=== PATIENT | male | born 1985 | race Two or more races ===

== ENCOUNTER 2017-10-31 16:27 | Emergency (ER) | payer MEDICAID, MEDICARE ==
[2017-10-31 16:46] VITALS: BP 184/117
[2017-10-31] MEDS ORDERED: Acetaminophen/oxyCODONE 325-5 MG Tab PO ONE (17:25)
--- NOTE | 2017-10-31 17:38 | EDM.PDOC ---
ED HPI GENERAL MEDICAL PROBLEM - General Chief Complaint: Lower Extremity Injury/Pain Stated Complaint: poss knee injury Time Seen by Provider: 10/31/17 16:46 Source of Information: Reports: Patient History Limitations: Reports: No Limitations - History of Present Illness INITIAL COMMENTS - FREE TEXT/NARRATIVE: 32-year-old male presents for evaluation and treatment of left knee pain and swelling. Patient states that on Sunday he attempted to move a 24 pack of soda with his foot. It sounds as if he had his knee contorted in an odd position when he was pushing the soda. He states he felt 2 pops in his knee. Presented to the [facility] Sunday where they did x-rays but no abnormalities were found. Since Sunday he has noticed increased swelling and pain. He normally is confined to a wheelchair but will transfer on his own. He is having difficulty with transfers due to the knee pain. No numbness or tingling in the leg. On arrival to the ER the patient's oxygen sats are from the ED percent. He states that he is norm low. He has severe kyphosis and is a dialysis patient. He had his complete run of dialysis today. He states that he has "soft bones". PCP is Dr. Mcdonnell. Location: Reports: Lower Extremity, Left Left Knee Pain Score (Numeric/FACES): 8 - Related Data Allergies Allergy/AdvReac Type Severity Reaction Status Date / Time No Known Allergies Allergy Verified 10/31/17 16:39 Home Meds: Home Meds Albuterol Sulfate [Proair Respiclick] 1 puff INH Q6H PRN 12/31/15 [History] Aspirin 325 mg PO DAILY 12/31/15 [History] B Complex & C No.20/Folic Acid [Nephrocaps Softgel] 1 mg PO DAILY 12/31/15 [ History] Lisinopril 40 mg PO DAILY 12/31/15 [History] Metoprolol Tartrate 100 mg PO TID 12/31/15 [History] Ranitidine [Zantac] 150 mg PO DAILY 12/31/15 [History] Sevelamer Carbonate [Renvela] 800 mg PO TIDMEALS 12/31/15 [History] amLODIPine [Norvasc] 10 mg PO BEDTIME 12/31/15 [History] cloNIDine [Catapres] 0.2 mg PO TID 12/31/15 [History] hydrALAZINE [Apresoline] 100 mg PO TID 12/31/15 [History] Acetaminophen/oxyCODONE [Percocet 325-5 MG] 1 each PO Q4HR PRN #15 tab 10/31/17 [Rx] Diclofenac Sodium [Voltaren] 50 mg PO TID #24 tab.ec 10/31/17 [Rx] Prednisone [IJD: predniSONE] 20 mg PO BID #10 tab 10/31/17 [Rx] Past Medical History Cardiovascular History: Reports: Bacterial Endocarditis, Cardiomyopathy, Heart Failure, Hypertension Respiratory History: Reports: Other (See Below) Other Respiratory History: History of SIRS, pneumonia, pulmonary edema Genitourinary History: Reports: Dialysis, Renal Disease Other Genitourinary History: membranoproliferative glomerulonephritis, C3 glomerulopathy Musculoskeletal History: Reports: Fracture, Gout Neurological History: Reports: Headaches, Chronic Psychiatric History: Reports: Anxiety Endocrine/Metabolic History: Reports: Hyperparathyroidism, Other (See Below) Other Endocrine/Metabolic History: secondary hyperphosphatemia, 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 Hematologic History: Reports: Anemia, Blood Transfusion(s), Other (See Below) Other Hematologic History: RBC known antibodies - Infectious Disease History Infectious Disease History: Reports: MRSA - Past Surgical History Musculoskeletal Surgical History: Reports: Arthroscopic Procedure, Other (See Below) Social & Family History - Tobacco Use Smoking Status *Q: Never Smoker Used Tobacco, but Quit: No Second Hand Smoke Exposure: No - Caffeine Use Caffeine Use: Reports: Energy Drinks, Soda, Tea Other Caffeine Use: occassionally - Alcohol Use Days Per Week of Alcohol Use: 0 (endorses one drink per month) - Recreational Drug Use Recreational Drug Use: No Drug Use in Last 12 Months: No Review of Systems - Review of Systems Review Of Systems: See Below Musculoskeletal: Reports: Joint Pain (left knee), Joint Swelling (left knee) Neurological: Reports: Other (confined to a wheelchair but is having increasing difficulty with weight bearing for transfers). Denies: Numbness, Tingling ED EXAM, GENERAL - Physical Exam Exam: See Below Exam Limited By: No Limitations General Appearance: Alert, WD/WN, No Apparent Distress Respiratory/Chest: No Respiratory Distress, Lungs Clear, Normal Breath Sounds, Crackles (right lower lung base) Cardiovascular: Normal Peripheral Pulses, Regular Rate, Rhythm, No Murmur Extremities: Joint Swelling (left knee), Limited Range of Motion (left knee), Increased Warmth (left knee), Other (+ anterior drawer and posterior drawer bilateral, + lachmans test bilteral, - vlagus and varus stress testing). No: Redness Neurological: Alert, Oriented, Normal Cognition Psychiatric: Normal Affect, Normal Mood Skin Exam: Warm, Dry, Normal Color Course - Vital Signs Last Recorded V/S: Last Vital Signs Temp 37.1 C 10/31/17 16:40 Pulse 92 10/31/17 16:40 Resp 18 10/31/17 16:40 BP 184/117 H 10/31/17 16:40 Pulse Ox 88 L 10/31/17 16:40 - Orders/Labs/Meds Orders: Active Orders 24 hr Category Date Time Status Knee Min 4V Lt [CR] Stat Exams 10/31/17 17:05 Taken Knee wo Cont Lt [CT] Stat Exams 10/31/17 17:20 Taken Labs: Laboratory Tests 10/31/17 10/31/17 10/31/17 Range/Units 17:22 17:22 17:22 WBC 7.29 (4.23-9.07) K/mm3 RBC 3.59 L (4.63-6.08) M/mm3 Hgb 11.4 L (13.7-17.5) gm/L Hct 35.1 L (40.1-51.0) % MCV 97.8 H (79.0-92.2) fl MCH 31.8 (25.7-32.2) pg MCHC 32.5 (32.2-35.5) g/dl RDW Std Deviation 49.6 H (35.1-43.9) fL Plt Count 133 L (163-337) K/mm3 MPV 8.9 L (9.4-12.3) fl Neutrophils % (Manual) 68 H (40-60) % Band Neutrophils % 0 (0-10) % Lymphocytes % (Manual) 15 L (20-40) % Atypical Lymphs % 0 % Monocytes % (Manual) 10 (2-10) % Eosinophils % (Manual) 7 (0.8-7.0) % Basophils % (Manual) 0 L (0.2-1.2) Platelet Estimate Adequate RBC Morph Comment Normal ESR 87 H (0-15) mm/hr Sodium 141 (136-145) mEq/L Potassium 4.3 (3.5-5.1) mEq/L Chloride 99 (98-107) mEq/L Carbon Dioxide 32 (21-32) mEq/L Anion Gap 14.3 (5-15) BUN 26 H (7-18) mg/dL Creatinine 4.7 H (0.7-1.3) mg/dL Est Cr Clr Drug Dosing 24.33 mL/min Estimated GFR (MDRD) 15 (>60) mL/min BUN/Creatinine Ratio 5.5 L (14-18) Glucose 112 H (74-106) mg/dL Uric Acid 2.7 L (3.5-7.2) mg/dL Calcium 8.2 L (8.5-10.1) mg/dL Total Bilirubin 0.5 (0.2-1.0) mg/dL AST 15 (15-37) U/L ALT 12 L (16-63) U/L Alkaline Phosphatase 1696 H (46-116) U/L C-Reactive Protein 4.1 H* (<1.0) mg/dL NT-Pro-B Natriuret Pep (0-125) pg/mL Total Protein 7.7 (6.4-8.2) g/dl Albumin 3.4 (3.4-5.0) g/dl Globulin 4.3 gm/dL Albumin/Globulin Ratio 0.8 L (1-2) 10/31/17 Range/Units 17:22 WBC (4.23-9.07) K/mm3 RBC (4.63-6.08) M/mm3 Hgb (13.7-17.5) gm/L Hct (40.1-51.0) % MCV (79.0-92.2) fl MCH (25.7-32.2) pg MCHC (32.2-35.5) g/dl RDW Std Deviation (35.1-43.9) fL Plt Count (163-337) K/mm3 MPV (9.4-12.3) fl Neutrophils % (Manual) (40-60) % Band Neutrophils % (0-10) % Lymphocytes % (Manual) (20-40) % Atypical Lymphs % % Monocytes % (Manual) (2-10) % Eosinophils % (Manual) (0.8-7.0) % Basophils % (Manual) (0.2-1.2) Platelet Estimate RBC Morph Comment ESR (0-15) mm/hr Sodium (136-145) mEq/L Potassium (3.5-5.1) mEq/L Chloride (98-107) mEq/L Carbon Dioxide (21-32) mEq/L Anion Gap (5-15) BUN (7-18) mg/dL Creatinine (0.7-1.3) mg/dL Est Cr Clr Drug Dosing mL/min Estimated GFR (MDRD) (>60) mL/min BUN/Creatinine Ratio (14-18) Glucose (74-106) mg/dL Uric Acid (3.5-7.2) mg/dL Calcium (8.5-10.1) mg/dL Total Bilirubin (0.2-1.0) mg/dL AST (15-37) U/L ALT (16-63) U/L Alkaline Phosphatase (46-116) U/L C-Reactive Protein (<1.0) mg/dL NT-Pro-B Natriuret Pep > 21147 H (0-125) pg/mL Total Protein (6.4-8.2) g/dl Albumin (3.4-5.0) g/dl Globulin gm/dL Albumin/Globulin Ratio (1-2) Meds: Medications Discontinued Medications Generic Name Dose Route Start Last Admin Trade Name Freq PRN Reason Stop Dose Admin Oxycodone/Acetaminophen 1 tab 10/31/17 17:25 10/31/17 17:55 Percocet 325-5 Mg PO 10/31/17 17:26 1 tab ONETIME ONE Administration - Radiology Interpretation Free Text/Narrative:: 4 view x-ray of the left knee reviewed by myself and Dr. Mcmahan shows no acute fractures or dislocations. CT left knee Technique: Multiple axial sections through the left knee were obtained. Reconstructed coronal and sagittal images were obtained. Comparison: Previous left knee radiograph performed earlier in the same day (5: 00 PM). Findings: Severe osteoporosis is seen with loss of normal trabecula and cortical thinning. Intramedullary paresh is seen within the distal visualized femoral diaphysis. Small joint effusion is seen. No acute fracture is identified but given the osteopenia and cortical thinning patient is at risk for future fracture. Impression: 1. Severe osteoporosis with loss of normal trabecular and cortical thinning. Please correlate if this is due to disuse, with reflux sympathetic dystrophy also included within the differential. 2. No acute fracture is seen although patient is at risk for future fracture due to the degree of osteoporosis. 3. Small joint effusion is seen. - Re-Assessments/Exams Free Text/Narrative Re-Assessment/Exam: 10/31/17 17:20 Dr. Corrigan accompanied me to the patient's room to see the patient. Appreciated warmth of the knee. X-ray did not show any obvious fractures. Recommended CT to further evaluate. Dr. Corrigan also recommended labs including CBC CMP, ESR, CRP and BNP. Dr. Corrigan contacted the patient's primary care provider, Dr. Mcdonnell, states his oxygen saturation not only this low. When discussed with patient he states that his oxygen sats always run in the 80s to low 90s.low. 10/31/17 18:[address] results with the patient. I did give him Percocet for pain. Dr. Corrigan company me into the room and has seen and evaluated the patient. Performed a full knee examined appreciated laxity to the ACL and PCL on anterior -posterior drawer testing. This was apparent on both knees. Recommended prednisone, Voltaren and Percocet for suspected gout versus pseudogout. Follow- up with primary care provider in one week. Discharge instructions as documented. Departure - Departure Time of Disposition: 18:28 Disposition: Home, Self-Care 01 Condition: Fair Clinical Impression: Gout - Discharge Information Prescriptions: Acetaminophen/oxyCODONE [Percocet 325-5 MG] 1 each PO Q4HR PRN #15 tab PRN Reason: Pain Diclofenac Sodium [Voltaren] 50 mg PO TID #24 tab.ec Prednisone [IJD: predniSONE] 20 mg PO BID #10 tab Instructions: Gout, [id number] Referrals: Matheus Mcdonnell MD [Primary Care Provider] - Dave Morales MD [Physician] - Forms: ED Department Discharge Additional Instructions: Prednisone 1 tab twice a day for 5 days. volteran 1 tab 3 times a day for 8 days. percocet 1 tab every 4-6 hours as needed for severe pain. Do not drive or operate machinery within 12 hours of taking Percocet. Percocet is habit-forming , I recommend you take as few these as needed to control your pain. You were given medication the other can affect your ability to drive and operate machinery. Do not drive or operate machinery within 12 hours of taking prescription narcotic pain medication. Ice the knee 3-4 times a day for 15-20 minutes. May continue to use the knee immobilizer as tolerated. Follow-up with your primary care provider in 7-10 days for recheck of your knee. Please return to the ER if your symptoms change or worsen.n. - My Orders Last 24 Hours: My Active Orders 10/31/17 17:05 Knee Min 4V Lt [CR] Stat 10/31/17 17:20 Knee wo Cont Lt [CT] Stat - Assessment/Plan Last 24 Hours: My Active Orders 10/31/17 17:05 Knee Min 4V Lt [CR] Stat 10/31/17 17:20 Knee wo Cont Lt [CT] Stat
--- NOTE | 2017-11-01 09:17 | CR ---
Left knee: Four views of the left knee were obtained. Comparison: No prior knee exam. Severe osteoporosis is seen. Intramedullary paresh is partially seen within the distal femur. Small joint effusion is seen. No discrete fracture or other bony abnormality is appreciated. Vascular calcification is seen. Impression: 1. Severe osteoporosis. Small joint effusion. 2. Other incidental findings. 3. No acute bony abnormality is definitely appreciated. Diagnostic code #2
--- NOTE | 2017-11-01 10:24 | CT ---
CT left knee Technique: Multiple axial sections through the left knee were obtained. Reconstructed coronal and sagittal images were obtained. Comparison: Previous left knee radiograph performed earlier in the same day (5: 00 PM). Findings: Severe osteoporosis is seen with loss of normal trabecula and cortical thinning. Intramedullary paresh is seen within the distal visualized femoral diaphysis. Small joint effusion is seen. No acute fracture is identified but given the osteopenia and cortical thinning patient is at risk for future fracture. Impression: 1. Severe osteoporosis with loss of normal trabecular and cortical thinning. Please correlate if this is due to disuse, with reflux sympathetic dystrophy also included within the differential. 2. No acute fracture is seen although patient is at risk for future fracture due to the degree of osteoporosis. 3. Small joint effusion is seen. Diagnostic code #3 MTDD
== END 2017-10-31 18:42 | disposition home or self-care (01) ==
LOC: JD.ED 16:27
DX: M10.9 Gout, unspecified (principal); M25.462 Effusion, left knee; I11.0 Hypertensive heart disease with heart failure; I50.9 Heart failure, unspecified; E21.3 Hyperparathyroidism, unspecified; Z79.82 Long term (current) use of aspirin; Z79.899 Other long term (current) drug therapy
CPT/HCPCS: 36415; 73564; 73700; 80053; 83880; 84550; 85025; 85652; 86140; 99284; A9270; 99283